=== PATIENT | male | born 1970 | race Caucasian/White ===

== ENCOUNTER 2018-02-02 00:03 | Emergency (ER) | payer BC ==
--- NOTE | 2018-02-02 00:17 | Emergency Department Record ---
History of Present Illness - General Chief Complaint: Abdominal Pain Stated Complaint: ABDOMINAL PAIN Time Seen by Provider: 02/02/18 00:12 Source: Patient Mode of Arrival: Ambulatory Limitations: No limitations - History of Present Illness Initial Comments: 48 yo male presents to ED for evaluation of epigastric abdominal pain symptoms and nausea that began this evening. Patient denies vomiting, fevers, chills, or recent illness. Patient denies chest pain or difficulty in breathing. Patient denies change in stools. Patient denies previous abdominal surgery other than surgical correction for pyloric stenosis as an . MD Complaint: Abdominal pain Onset/Timin -: Hour(s) Location: Epigastric Radiation: Epigastric Migration to: No migration Severity: Moderate Quality: Cramping Consistency: Constant Improves With: Nothing Worsens With: Nothing Associated Symptoms: Denies other symptoms - Related Data Previous Rx's Medication Instructions Recorded Omeprazole 40 mg PO DAILY #30 cap 02/02/18 Allergies Allergy/AdvReac Type Severity Reaction Status Date / Time No Known Allergies Allergy Unverified 01/16/18 15:54 Review of Systems Constitutional: Denies: Chills, Fever, Malaise, Night sweats Eyes: Denies: Eye discharge, Eye pain ENT: Denies: Congestion, Ear pain, Epistaxis Respiratory: Denies: Cough, Dyspnea Cardiovascular: Denies: Chest pain, Dyspnea on exertion Endocrine: Denies: Fatigue, Heat or cold intolerance Gastrointestinal: Reports: Abdominal pain, Nausea. Denies: Vomiting Genitourinary: Denies: Incontinence, Retention Musculoskeletal: Denies: Arthralgia, Back pain Skin: Denies: Bruising, Change in color, Change in hair/nails Neurological: Denies: Abnormal gait, Confusion, Headache, Seizure Psychiatric: Denies: Anxiety Hematological/Lymphatic: Denies: Anemia, Blood Clots Physical Exam - General General Appearance: Alert, Oriented x3, Cooperative, Mild distress Limitations: No limitations - Head Head exam: Atraumatic, Normocephalic, Normal inspection Head exam detail: negative: Abrasion, Contusion, Rodrigues's sign, General tenderness, Hematoma, Laceration - Eye Eye exam: Normal appearance. negative: Conjunctival injection, Periorbital swelling, Periorbital tenderness, Scleral icterus - ENT Ear exam: negative: Auricular hematoma, Auricular trauma Nasal Exam: negative: Active bleeding, Discharge, Dried blood, Foreign body Mouth exam: negative: Drooling, Laceration, Tongue elevation - Neck Neck exam: Normal inspection. negative: Meningismus, Tenderness - Respiratory Respiratory exam: Normal lung sounds bilaterally. negative: Rales, Respiratory distress, Rhonchi, Stridor - Cardiovascular Cardiovascular Exam: Regular rate, Normal rhythm, Normal heart sounds - GI/Abdominal GI/Abdominal exam: Soft, Tenderness (Mild epigastric TTP, no rebound or guarding present on examination.). negative: Rebound, Rigid - Rectal Rectal exam: Deferred - exam: Deferred - Extremities Extremities exam: Normal inspection. negative: Pedal edema, Tenderness - Back Back exam: Denies: CVA tenderness (R), CVA tenderness (L) - Neurological Neurological exam: Alert, Normal gait, Oriented X3 - Psychiatric Psychiatric exam: Normal affect, Normal mood - Skin Skin exam: Normal color. negative: Abrasion Type of lesion: negative: abrasion Course Vital Signs 02/02/18 00:08 Temperature 97.7 F Pulse Rate [ 84 Pulse Ox Probe] Respiratory 20 Rate Blood Pressure 168/104 [Left Arm] Pulse Ox 100 - Reevaluation(s) Reevaluation #1: 02/02/18 00:46 Laboratory studies were reviewed and are grossly unremarkable for an acute process. Reevaluation #2: 02/02/18 01:13 CT Abdomen and Pelvis: Small hiatal hernia Gallbladder appears distended, no adjacent fluid or stones are present. Punctate non-obstructing left nephrolithiasis Patient was updated on all results, symptoms appear c/w possible gastritis vs. PUD. Will treat by increasing Omeprazole from 20 to 40 mg daily with instructions to follow-up with his PCP in 3-5 days as directed. Medical Decision Making - Lab Data Result diagrams: 02/02/18 00:05 02/02/18 00:05 Disposition Disposition: Discharge Clinical Impression: Epigastric abdominal pain Disposition: Home, Self-Care Condition: (2) Stable Instructions: Epigastric Pain (ED) Additional Instructions: Return to ED if your symptoms worsen or if you have any concerns. Omeprazole 40 mg daily as directed. Follow-up with your family doctor in 3-5 days as directed. Prescriptions: Omeprazole 40 mg PO DAILY #30 cap.dr Forms: Patient Portal Access Time of Disposition: :17 Quality - Quality Measures Quality Measures: N/A - Blood Pressure Screening Does Patient Have Any of the Following: No Blood Pressure Classification: Pre-Hypertensive BP Reading Systolic Measurement: 133 Diastolic Measurement: 84 Screening for High Blood Pressure: < Pre-Hypertensive BP, F/U Documented > [ G8950] Pre-Hypertensive Follow-up Interventions: Referral to alternative/primary care provider.
[2018-02-02] MEDS: KETOROLAC 30 MG/ML VIAL IVP ONE (00:21)
[2018-02-02] MEDS: 0.9 % SODIUM CHLORIDE 1000ML 1,000 ML IV SCH (00:21)
[2018-02-02] MEDS: ONDANSETRON HCL IV 4 MG/2 ML VIAL IVP ONE (00:21)
[2018-02-02 00:22] LABS: BASO % 0.9 % (0-6); EOS % 3.3 % (0-6); GRAN % 47.2 % (47-80); HEMATOCRIT 41.7 % (42.0-52.0); HEMOGLOBIN 14.1 gm/dl (14.0-18.0); LYMPH % 39.8 % (16-45); MEAN CELL VOLUME 91.4 fl (81-97); MEAN CORPUSCULAR HEMOGLOBIN 30.9 pg (27-33); MEAN CORPUSCULAR HGB CONC 33.8 g/dl (32-36); MEAN PLATELET VOLUME 10.4 fl (7.4-10.4); MONO % 8.8 % (0-9); PLATELET COUNT 342 K/uL (130-400); RED BLOOD COUNT 4.56 M/uL (4.40-5.70); RED CELL DISTRIBUTION WIDTH 12.7 % (11.5-14.5)
[2018-02-02 00:39] LABS: BLOOD UREA NITROGEN 15 mg/dL (6-20); EST GLOMERULAR FILTRATION RATE > 60 mL/min
[2018-02-02 00:40] LABS: TOTAL PROTEIN 6.9 g/dL (6.6-8.7)
[2018-02-02 00:42] LABS: GLUCOSE,RANDOM 115 mg/dL (74-109)
[2018-02-02 00:45] LABS: ALB/GLOB RATIO 1.7 (1.1-1.8); ALBUMIN 4.3 g/dL (4.0-5.0); ALKALINE PHOSPHATASE 73 U/L (40-129); ALT/SGPT 47 U/L (<41); AST/SGOT 27 U/L (10.0-50.0); LIPASE 44 U/L (13-60)
[2018-02-02] MEDS: MAGNESIUM HYDROXIDE/AL HYDROX 30 ML, LIDOCAINE VISC 2% 15ML 15 ML PO ONE ×2 (00:53)
--- NOTE | 2018-02-03 08:26 | CT SCAN REPORT ---
EXAM: CT OF THE ABDOMEN AND PELVIS WITH CONTRAST HISTORY: ABDOMINAL PAIN. TECHNIQUE: Sequential axial images were obtained from the diaphragms through the ischiorectal fossa after intravenous administration of 100 ml of Omnipaque 300 contrast material. FINDINGS: The visualized lung bases appear normal. 10 mm low density lesion in the left lobe of the liver. Mild gallbladder distention. No gallstones or ductal dilatation. The pancreas and spleen appear normal. There is a small sliding type hiatal hernia. The adrenal glands and kidneys appear normal. No obstructive uropathy. The small bowel appears normal. The colon appears normal. The appendix is visualized and appears normal. The urinary bladder appears normal. The prostate gland appears normal. The osseous structures are grossly unremarkable. IMPRESSION: 1. NO ACUTE ABDOMINAL OR PELVIC DISEASE PROCESS. 2. MILD GALLBLADDER DISTENTION. NO GALLSTONES OR DUCTAL DILATATION. JOB NUMBER: [id number] [facility]TD[facility]
== END 2018-02-02 01:46 | disposition home or self-care (01) ==
LOC: ER 00:03
DX: R10.13 Epigastric pain (principal); R11.0 Nausea
CPT/HCPCS: 99282 ×2; 99284 ×2; 96374; 96375; 83690; 85025; 80076; 80053; 76700; 74177; Q9967; J1885; J2405; J7030

== ENCOUNTER 2018-02-02 15:05 | Emergency (ER) | payer BC ==
--- NOTE | 2018-02-02 15:46 | Emergency Department Record ---
History of Present Illness - General Chief Complaint: Recheck - Other Stated Complaint: RECHECK, US Time Seen by Provider: 02/02/18 15:34 Source: Patient Mode of arrival: Ambulatory Limitations: No limitations - History of Present Illness Initial Comments: The patient is here due to persistent RUQ AP. The onset of the pain was about 24 hours ago and then it was a diffuse upper AP not associated with nausea or vomiting. The patient was seen in the ER last night and had a neg CT and neg lab work. Now the pain is localizing more to the RUQ so he is here for an abdominal US. The patient denies any fever, chills, vomiting, CP, SOB, or diarrhea. MD Complaint: Other Onset/Timin -: Days(s) Initial Visit For: Other Returns Today for: Other Symptoms Since Prior Visit: No new symptoms Associated Symptoms: Abdominal pain - Related Data Previous Rx's Medication Instructions Recorded Omeprazole 40 mg PO DAILY #30 02/02/18 Allergies Allergy/AdvReac Type Severity Reaction Status Date / Time No Known Allergies Allergy Unverified 01/16/18 15:54 Travel Screening - Travel/Exposure Within Last 30 Days Have you traveled within the last 30 days?: No Review of Systems Constitutional: Denies: Chills, Fever Eyes: Denies: Eye discharge ENT: Denies: Congestion Respiratory: Denies: Cough, Dyspnea Past Medical History - SOCIAL HISTORY Smoking Status: Never smoker Alcohol Use: None Drug Use: None - RESPIRATORY Hx Respiratory Disorders: No - CARDIOVASCULAR Hx Cardio Disorders: No - NEURO Hx Neuro Disorders: No - GI Hx GI Disorders: Yes Hx Reflux: Yes - Hx Genitourinary Disorders: No - ENDOCRINE Hx Endocrine Disorders: No - MUSCULOSKELETAL Hx Musculoskeletal Disorders: No - PSYCH Hx Psych Problems: No - HEMATOLOGY/ONCOLOGY Hx Hematology/Oncology Disorders: No Family Medical History Any Significant Family History?: No Physical Exam - General General Appearance: Alert, Oriented x3, Cooperative, No acute distress - Head Head exam: Atraumatic, Normocephalic, Normal inspection - Eye Eye exam: Normal appearance, PERRL, EOMI - ENT Throat exam: Normal inspection. negative: Tonsillar erythema, Tonsillar exudate - Neck Neck exam: Normal inspection, Full ROM. negative: Tenderness - Respiratory Respiratory exam: Normal lung sounds bilaterally. negative: Respiratory distress - Cardiovascular Cardiovascular Exam: Regular rate, Normal rhythm, Normal heart sounds - GI/Abdominal GI/Abdominal exam: Soft, Normal bowel sounds, Tenderness (There is significant RUQ tenderness.). negative: Distended, Guarding, Rebound, Rigid - Extremities Extremities exam: Normal inspection, Full ROM, Normal capillary refill. negative: Tenderness - Back Back exam: Reports: Normal inspection - Neurological Neurological exam: Alert. negative: Motor sensory deficit Course Vital Signs 02/02/18 15:21 Temperature 98.9 F Pulse Rate 109 H Respiratory 16 Rate Blood Pressure 138/87 Pulse Ox 98 - Reevaluation(s) Reevaluation #1: The patient is doing a lot better a this time. His pain has basically resolved and he is resting comfortably. I did discuss the neg lab work and US with him and the need for F/U. 02/02/18 17:41 Medical Decision Making - Data Complexity MDM Data: Labs Ordered and/or Reviewed, X-Ray Ordered and/or Reviewed - Lab Data Result diagrams: 02/02/18 16:55 - Radiology Data Radiology results: Report reviewed (US: Neg for GB dz.) Disposition Disposition: Discharge Clinical Impression: Epigastric abdominal pain Disposition: Home, Self-Care Condition: (2) Stable Instructions: Abdominal Pain (ED) Additional Instructions: Please continue your Omeprazole and use Tylenol for pain. Please take an OTC laxative and see your family doctor if not better in 3 days. Return to the ER for any worsening symptoms. Forms: Patient Portal Access Time of Disposition: 17:41 Quality - Quality Measures Quality Measures: N/A - Blood Pressure Screening View Details: Yes Does Patient Have Any of the Following: No Blood Pressure Classification: Pre-Hypertensive BP Reading Systolic Measurement: 138 Diastolic Measurement: 87 Screening for High Blood Pressure: < Pre-Hypertensive BP, F/U Documented > [ G8950] Pre-Hypertensive Follow-up Interventions: Referral to alternative/primary care provider.
[2018-02-02 17:06] LABS: BASO % 0.2 % (0-6); EOS % 1.2 % (0-6); GRAN % 75.7 % (47-80); HEMATOCRIT 42.6 % (42.0-52.0); HEMOGLOBIN 14.2 gm/dl (14.0-18.0); LYMPH % 13.9 % (16-45); MEAN CELL VOLUME 91.6 fl (81-97); MEAN CORPUSCULAR HEMOGLOBIN 30.5 pg (27-33); MEAN CORPUSCULAR HGB CONC 33.3 g/dl (32-36); MEAN PLATELET VOLUME 10.4 fl (7.4-10.4); PLATELET COUNT 322 K/uL (130-400); RED BLOOD COUNT 4.65 M/uL (4.40-5.70); RED CELL DISTRIBUTION WIDTH 12.6 % (11.5-14.5); WHITE BLOOD COUNT W/O DIFF 12.3 K/uL (4.2-12.2)
[2018-02-02 17:36] LABS: ALT/SGPT 41 U/L (<41)
[2018-02-02 17:37] LABS: ALBUMIN 4.2 g/dL (4.0-5.0); ALKALINE PHOSPHATASE 67 U/L (40-129); AST/SGOT 23 U/L (10.0-50.0); LIPASE 29 U/L (13-60)
[2018-02-02 17:38] LABS: BILIRUBIN,DIRECT < 0.2 mg/dL (0-0.3)
--- NOTE | 2018-02-03 13:35 | ULTRASOUND REPORT ---
EXAM: EMERGENCY COMPLETE ABDOMEN ULTRASOUND HISTORY: RIGHT UPPER QUADRANT PAIN. TECHNIQUE: Complete real-time ultrasound examination of the abdomen was obtained. Comparison: No prior abdomen ultrasound. Comparison is made with the abdomen CT from earlier today on 02/02/18. Report of the prior CT is not as yet available within PACS, however. FINDINGS: The pancreas is largely obscured by overlying bowel gas and not adequately visualized sonographically. Similarly, portions of the abdominal aorta were also obscured by overlying bowel gas although the visualized abdominal aorta, which was primarily the distal aspect, does appear of normal caliber with no aneurysm evident. The IVC was negative as seen. The liver has a somewhat coarsened echogenicity which may represent some diffuse fatty infiltration of the liver. Relative sparing of this coarsened echogenicity near the gallbladder probably represents some variable fatty infiltration. There is no obvious hepatic mass near the gallbladder fossa on the recent CT. No intrahepatic biliary dilatation is seen. The right kidney measures about 11.7 cm in length. No hydronephrosis evident. Slightly hypoechoic area centrally in the right kidney is probably just a prominent pyramid when correlated with the abdomen CT from this morning as well with no actual renal mass identified in this location on the CT. No gallstones identified within the gallbladder. No pericholecystic fluid collection identified. Personal Support Worker indicates a negative sonographic Root's sign as well. The common duct was seen and was of normal caliber. The spleen appears negative with no splenic mass evident. The left kidney measures about 13.2 cm in length with no hydronephrosis evident. IMPRESSION: 1. NO GALLSTONES OR BILIARY DILATATION SEEN. 2. NO HYDRONEPHROSIS EVIDENT. 3. COARSENED ECHOGENICITY OF THE LIVER SUGGESTING SOME DIFFUSE FATTY INFILTRATION OF THE LIVER. SLIGHT CHANGE IN HEPATIC PARENCHYMAL DENSITY NEAR THE GALLBLADDER IS PROBABLY JUST SOME AREA OF FATTY SPARING, NOT UNCOMMON IN THIS REGION. 4. THE PANCREAS WELL PORTIONS OF THE AORTA ARE OBSCURED BY OVERLYING BOWEL CONTENT. JOB NUMBER: [id number] [facility]
== END 2018-02-02 17:52 | disposition home or self-care (01) ==
LOC: ER 15:05
DX: R10.13 Epigastric pain (principal)
CPT/HCPCS: 76700; 80076; 83690; 85025

== ENCOUNTER 2018-04-13 10:14 | Day surgery (SDC) | payer BC ==
[2018-04-13] MEDS ORDERED: LIDOCAINE 2% MDV (20MG/ML) 20ML VIAL IV ONE (10:15)
[2018-04-13] MEDS ORDERED: FENTANYL PF 100MCG/2ML VIAL IV ONE (10:15)
[2018-04-13] MEDS ORDERED: PROPOFOL 10 MG/ML VIAL IV ONE (10:15)
--- NOTE | 2018-04-14 09:50 | Operative Note ---
DATE OF SURGERY: 04/13/2018 OPERATION: ESOPHAGOGASTRODUODENOSCOPY with multiple biopsies. INDICATION: Severe band-like epigastric pain extending around to the back. He did have a low ejection fraction of his gallbladder noted on HIDA scanning. He presents today, however, at the request of his physician for upper endoscopy to rule out additional pathology. He does suffer with chronic pyrosis but it has been fairly well controlled with acid blockade treatment. ANESTHESIA: Intravenous sedation was administered by the department of anesthesiology and included Diprivan titrated to effect. PROCEDURE: Following informed consent from this alert individual, including a discussion of the risks and benefits of the procedure and an opportunity for the patient to ask questions, the patient was in the left lateral decubitus position. The Olympus [id number] video endoscope was inserted into the esophagus without resistance. The proximal esophagus had a normal appearance with normal folds and distensibility. The mid and distal esophagus likewise was free from changes. The squamocolumnar junction approximated the diaphragmatic hiatus. It was smooth and well defined. The stomach was entered. The gastric fundus and pars media had a normal appearance with normal folds and distensibility. The antrum was evaluated circumferentially and demonstrated some mild erythema and a 1 cm umbilicated lesion along the greater curvature of the antrum suggestive of a pancreatic rest. The pylorus was patent. The duodenal bulb, sweep and descending duodenum were examined in a serial fashion and found to be normal. The endoscope was then drawn back into the body of the stomach where retroflexion accomplished following air insufflation failed to demonstrate any additional changes. The instrument was then straightened. Biopsy was first taken from the antral mucosa to assess for Helicobacter pylori and histology. Second set of biopsies was taken from the presume pancreatic rest. After biopsy, endoscope was then withdrawn back through a normal proximal stomach and esophagus and removed from the patient. He tolerated the procedure well and was returned to the recovery area in stable condition. IMPRESSION: 1. 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 2. Minimal antral gastritis, biopsies taken. 3. Normal esophagus and duodenum. RECOMMENDATION: The patient's HIDA scan was abnormal with a low ejection fraction of only 14%. The patient described band-like pain and pressure around his upper abdomen most compatible with biliary colic. Pending biopsy results, I would recommend he follow up with his primary care physician to discuss possible surgical referral for a possible cholecystectomy. Further recommendations may be forthcoming pending biopsy. As always, thank you for allowing me to participate in the care of your patient. CC: SOFI JONES MD, FACP [facility]
== END 2018-04-13 12:22 | disposition home or self-care (01) ==
LOC: HOP 10:14
PROVIDERS: ATTEND Internal Medicine Gastroenterology
DX: R10.13 Epigastric pain (principal); R12 Heartburn; K29.70 Gastritis, unspecified, without bleeding; E78.00 Pure hypercholesterolemia, unspecified
CPT/HCPCS: 43239; 00731; J3010

== ENCOUNTER 2018-08-13 04:31 | Emergency (ER) | payer BC ==
[2018-08-13] MEDS ORDERED: DICYCLOMINE HCL 10 MG/ML AMPUL IM ONE (04:57)
[2018-08-13] MEDS ORDERED: KETOROLAC 30 MG/ML VIAL IVP ONE (04:57)
[2018-08-13] MEDS ORDERED: ONDANSETRON HCL IV 4 MG/2 ML VIAL IV ONE (04:57)
--- NOTE | 2018-08-13 05:01 | Emergency Department Record ---
History of Present Illness - General Chief Complaint: Abdominal Pain Stated Complaint: GALL BLADDER ATTACK Time Seen by Provider: 08/13/18 04:47 Source: Patient Mode of Arrival: Ambulatory Limitations: No limitations - History of Present Illness Initial Comments: pt states he is having a gall bladder attack. he had milk and protein bars for dinner. he had a similar attack last january and saw dr espinoza and dr porras. his hida scan was abnormal w 14% ef. he had had n/v x1. no chg in stool MD Complaint: Abdominal pain Onset/Timin -: Hour(s) Location: RUQ Radiation: RUQ Severity: Moderate Severity scale (1-10): 7 Quality: Sharp, Stabbing Consistency: Constant Improves With: Nothing Worsens With: Nothing Associated Symptoms: Nausea, Vomiting - Related Data Home Medications Medication Instructions Recorded Confirmed Last Taken Aspirin [Aspir-Low] 81 mg PO DAILY 08/13/18 08/13/18 08/13/18 Fexofenadine/Pseudoephedrine 1 tab PO DAILY 08/13/18 08/13/18 08/13/18 [Komal-D 24 Hour Tablet] [place]-3/Dha/Epa/Fish Oil [Fish Oil 1,000 mg PO DAILY 08/13/18 08/13/18 08/13/18 1,000 mg Softgel] Psyllium Husk [Fiber] 0.4 gm PO DAILY 08/13/18 08/13/18 08/13/18 Previous Rx's Medication Instructions Recorded Omeprazole 40 mg PO DAILY #30 rodolfo. 02/02/18 Dicyclomine HCl [Bentyl] 10 mg PO Q8H #10 cap 08/13/18 Hydrocodone/Acetaminophen [[place] 1 each PO Q6HR #7 tablet 08/13/18 5-325 Tablet] Allergies Allergy/AdvReac Type Severity Reaction Status Date / Time No Known Drug Allergies Allergy Verified 08/13/18 04:43 Travel Screening - Travel/Exposure Within Last 30 Days Have you traveled within the last 30 days?: Yes Location Detail:: [place] - Travel/Exposure Within Last Year Have you traveled outside the [place] in the last year?: No - Additonal Travel Details Have you been exposed to anyone with a communicable illness?: No - Travel Symptoms Symptom Screening: None Review of Systems Reviewed: No additional complaints except as noted below Constitutional: Reports: As per HPI. Denies: Chills, Fever, Malaise, Night sweats, Weakness, Weight change Eyes: Reports: As per HPI. Denies: Eye discharge, Eye pain, Photophobia, Vision change ENT: Reports: As per HPI. Denies: Congestion, Dental pain, Ear pain, Epistaxis, Hearing loss, Throat pain Respiratory: Reports: As per HPI. Denies: Cough, Dyspnea, Hemoptysis, Stridor, Wheezes Cardiovascular: Reports: As per HPI. Denies: Arrhythmia, Chest pain, Dyspnea on exertion, Edema, Murmurs, Orthopnea, Palpitations, Paroxysmal nocturnal dyspnea, Rheumatic Fever, Syncope Endocrine: Reports: As per HPI. Denies: Fatigue, Heat or cold intolerance, Polydipsia, Polyuria Gastrointestinal: Reports: As per HPI, Abdominal pain, Nausea, Vomiting. Denies: Constipation, Diarrhea, Hematemesis, Hematochezia, Melena Genitourinary: Reports: As per HPI. Denies: Dysuria, Frequency, Hematuria, Incontinence, Retention, Testicular pain, Testicular mass, Urgency Musculoskeletal: Reports: As per HPI. Denies: Arthralgia, Back pain, Gout, Joint swelling, Myalgia, Neck pain Skin: Reports: As per HPI. Denies: Bruising, Change in color, Change in hair/nails, Lesions, Pruritus, Rash Neurological: Reports: As per HPI. Denies: Abnormal gait, Confusion, Headache, Numbness, Paresthesias, Seizure, Tingling, Tremors, Vertigo, Weakness Psychiatric: Reports: As per HPI. Denies: Anxiety, Auditory hallucinations, Depression, Homicidal thoughts, Suicidal thoughts, Visual hallucinations Hematological/Lymphatic: Reports: As per HPI. Denies: Anemia, Blood Clots, Easy bleeding, Easy bruising, Swollen glands Past Medical History - SOCIAL HISTORY Smoking Status: Never smoker Alcohol Use: Occasional Drug Use: None - RESPIRATORY Hx Respiratory Disorders: No - CARDIOVASCULAR Hx Cardio Disorders: No - NEURO Hx Neuro Disorders: No - GI Hx GI Disorders: Yes Hx Reflux: Yes - Hx Genitourinary Disorders: No - ENDOCRINE Hx Endocrine Disorders: No - MUSCULOSKELETAL Hx Musculoskeletal Disorders: No - PSYCH Hx Psych Problems: Yes Hx Anxiety: Yes - HEMATOLOGY/ONCOLOGY Hx Hematology/Oncology Disorders: No Family Medical History Any Significant Family History?: No Physical Exam - General General Appearance: Alert, Oriented x3, Cooperative, Mild distress - Head Head exam: Normal inspection - Eye Eye exam: Normal appearance, PERRL, EOMI Pupils: Normal accommodation - ENT ENT exam: Normal exam, Mucous membranes moist, Normal external ear exam, Normal orophraynx Ear exam: Normal external inspection. negative: External canal tenderness Nasal Exam: Normal inspection. negative: Discharge, Sinus tenderness Mouth exam: Normal external inspection, Tongue normal Teeth exam: Normal inspection. negative: Dental caries Throat exam: Normal inspection. negative: Tonsillar erythema, Tonsillar exudate - Neck Neck exam: Normal inspection, Full ROM. negative: Tenderness - Respiratory Respiratory exam: Normal lung sounds bilaterally. negative: Respiratory distress - Cardiovascular Cardiovascular Exam: Regular rate, Normal rhythm, Normal heart sounds - GI/Abdominal GI/Abdominal exam: Soft, Normal bowel sounds, Tenderness (ruq) - Rectal Rectal exam: Deferred - exam: Deferred - Extremities Extremities exam: Normal inspection, Full ROM, Normal capillary refill. negative: Tenderness - Back Back exam: Reports: Normal inspection, Full ROM. Denies: Muscle spasm, Rash noted, Tenderness - Neurological Neurological exam: Alert, CN II-XII intact, Normal gait, Oriented X3 - Psychiatric Psychiatric exam: Normal affect, Normal mood - Skin Skin exam: Dry, Intact, Normal color, Warm Course Vital Signs 08/13/18 04:36 Temperature 98.7 F Pulse Rate 82 Respiratory 20 Rate Blood Pressure 154/101 Pulse Ox 98 - Reevaluation(s) Reevaluation #1: 08/13/18 05:45 pt feels better Medical Decision Making - Lab Data Result diagrams: 08/13/18 04:45 08/13/18 04:45 Disposition Disposition: Discharge Clinical Impression: Biliary colic Disposition: Home, Self-Care Condition: (1) Good Instructions: Biliary Colic (ED) Additional Instructions: follow up with dr espinoza. return sooner if worse. low fat diet Prescriptions: Hydrocodone/Acetaminophen [[place] 5-325 Tablet] 1 each PO Q6HR #7 tablet Dicyclomine HCl [Bentyl] 10 mg PO Q8H #10 cap Referrals: Cas Espinoza [DOCTOR OF OSTEOPATH] - [facility] [Provider Group] Forms: Patient Portal Access, Return to Work/School Quality - Quality Measures Quality Measures: N/A - Blood Pressure Screening Does Patient Have Any of the Following: No Blood Pressure Classification: Hypertensive Reading Systolic Measurement: 154 Diastolic Measurement: 101 Screening for High Blood Pressure: < First Hypertensive BP, F/U Documented > [G8950] First Hypertensive Follow-up Interventions: Follow-up with rescreen GT 1 day and LT 4 weeks.
[2018-08-13] MEDS ORDERED: 0.9 % SODIUM CHLORIDE 1,000 ML BAG IV ONE (05:02)
[2018-08-13 05:06] LABS: ABSOLUTE NEUTROPHIL COUNT 5.43; BASO % 0.6 % (0-6); EOS % 2.5 % (0-6); GRAN % 60.1 % (47-80); HEMATOCRIT 42.1 % (42.0-52.0); HEMOGLOBIN 14.3 gm/dl (14.0-18.0); LYMPH % 27.5 % (16-45); MEAN CELL VOLUME 90.9 fl (81-97); MEAN CORPUSCULAR HEMOGLOBIN 30.9 pg (27-33); MEAN PLATELET VOLUME 10.5 fl (7.4-10.4); MONO % 9.3 % (0-9); PLATELET COUNT 321 K/uL (130-400); RED BLOOD COUNT 4.63 M/uL (4.40-5.70); RED CELL DISTRIBUTION WIDTH 12.7 % (11.5-14.5)
[2018-08-13 05:19] LABS: BLOOD UREA NITROGEN 19 mg/dL (6-20); CREATININE 0.9 mg/dL (0.7-1.2); EST GLOMERULAR FILTRATION RATE > 60 mL/min
[2018-08-13 05:20] LABS: LIPASE 26 U/L (13-60)
[2018-08-13 05:22] LABS: GLUCOSE,RANDOM 123 mg/dL (74-109)
[2018-08-13 05:24] LABS: ALT/SGPT 33 U/L (<41)
[2018-08-13 05:25] LABS: ALBUMIN 4.5 g/dL (4.0-5.0); ALKALINE PHOSPHATASE 64 U/L (40-129); AST/SGOT 23 U/L (10.0-50.0); BILIRUBIN,DIRECT < 0.2 mg/dL (0-0.3)
== END 2018-08-13 05:52 | disposition home or self-care (01) ==
LOC: ER 04:31
DX: K80.50 Calculus of bile duct without cholangitis or cholecystitis without obstruction (principal); R11.2 Nausea with vomiting, unspecified
CPT/HCPCS: 99284 ×2; 96374; 96372; 96375; 83690; 85025; 80076; 80048; J1885; J2405; J7030

== ENCOUNTER 2018-08-17 23:56 | Observation (INO) | payer BC ==
[2018-08-18] MEDS ORDERED: SODIUM CHLORIDE 0.9% 500 ML IV ONE (00:13)
[2018-08-18] MEDS ORDERED: ACETAMINOPHEN 1,000 MG/100 ML BTL IVPB ONE (00:13)
[2018-08-18] MEDS ORDERED: ONDANSETRON HCL IV 4 MG/2 ML VIAL IV ONE (00:13)
--- NOTE | 2018-08-18 00:17 | Emergency Department Record ---
History of Present Illness - General Chief Complaint: Abdominal Pain Stated Complaint: GALLBLADDER PAIN OUT OF PAIN MEDS Time Seen by Provider: 08/18/18 00:03 Source: Patient Mode of Arrival: Ambulatory Limitations: No limitations - History of Present Illness Initial Comments: The patient is here due to recurrent abdominal pain today. He has had problems with upper AP starting in Jan of last year. He had a full workup including a CT, US, EGD and Hida scan. His workup demonstrated a poorly functioning GB at the time of the scan which was in Feb of this year. The pain then did subside until a week ago. He was here in the ER on 08/13/18 and did have normal lab values and was discharged on Arcadia. He now is out of the Arcadia. The patient did see Dr. Nelly pink [facility] and is scheduled for surgery in a week. Due to being out of pain medicines and the fact he pain returned he did return to the ER. The patient did call Dr. Silver and was told to take Motrin but since that did not work he came here. Complaint: Abdominal pain Onset/Timin -: Days(s) Severity scale (1-10): 9 Quality: Aching Consistency: Constant Improves With: Nothing Worsens With: Nothing Associated Symptoms: Nausea - Related Data Previous Rx's Medication Instructions Recorded Omeprazole 40 mg PO DAILY #30 rodolfo. 02/02/18 Dicyclomine HCl [Bentyl] 10 mg PO Q8H #10 cap 08/13/18 Hydrocodone/Acetaminophen [Arcadia 1 each PO Q6HR #7 tablet 08/13/18 5-325 Tablet] Allergies Allergy/AdvReac Type Severity Reaction Status Date / Time No Known Drug Allergies Allergy Verified 08/13/18 04:43 Travel Screening - Travel/Exposure Within Last 30 Days Have you traveled within the last 30 days?: No Review of Systems Constitutional: Denies: Chills, Fever Eyes: Denies: Eye discharge ENT: Denies: Congestion Respiratory: Denies: Cough, Dyspnea Cardiovascular: Denies: Arrhythmia, Chest pain Endocrine: Denies: Fatigue Gastrointestinal: Reports: Abdominal pain, Nausea. Denies: Diarrhea, Vomiting Genitourinary: Denies: Hematuria Musculoskeletal: Denies: Arthralgia Skin: Denies: Bruising Past Medical History - SOCIAL HISTORY Smoking Status: Never smoker Alcohol Use: None Drug Use: None - RESPIRATORY Hx Respiratory Disorders: No - CARDIOVASCULAR Hx Cardio Disorders: No - NEURO Hx Neuro Disorders: No - GI Hx GI Disorders: Yes Hx Reflux: Yes - Hx Genitourinary Disorders: No - ENDOCRINE Hx Endocrine Disorders: No - MUSCULOSKELETAL Hx Musculoskeletal Disorders: No - PSYCH Hx Psych Problems: Yes Hx Anxiety: Yes - HEMATOLOGY/ONCOLOGY Hx Hematology/Oncology Disorders: No Family Medical History Any Significant Family History?: No Physical Exam - General General Appearance: Alert, Oriented x3, Cooperative, No acute distress - Head Head exam: Atraumatic, Normocephalic, Normal inspection - Eye Eye exam: Normal appearance - Neck Neck exam: Normal inspection, Full ROM. negative: Tenderness - Respiratory Respiratory exam: Normal lung sounds bilaterally. negative: Respiratory distress - Cardiovascular Cardiovascular Exam: Regular rate, Normal rhythm, Normal heart sounds - GI/Abdominal GI/Abdominal exam: Soft, Normal bowel sounds, Tenderness (There is mild upper abdominal tenderness.). negative: Distended, Guarding, Rigid - Extremities Extremities exam: Normal inspection, Full ROM, Normal capillary refill. neg ative: Tenderness - Back Back exam: Reports: Normal inspection - Neurological Neurological exam: Alert, Normal gait. negative: Abnormal gait, Motor sensory deficit - Psychiatric Psychiatric exam: negative: Anxious - Skin Skin exam: negative: Rash Course Vital Signs 08/18/18 00:03 Temperature 98.0 F Pulse Rate [ 84 Left] Respiratory 16 Rate Blood Pressure 163/102 [Left] Pulse Ox 97 - Reevaluation(s) Reevaluation #1: The patient is doing better at this time but is still having pain. On exam he still does have mild RUQ tenderness. The CT does demonstrate a thickened GB with possible inflammation. Due to that fact I did contact Dr. Silver and he would like the patient admitted to the hospital under him and he will take the patient to surgery at approx. 4pm today. The patient also agrees to the plan. 08/18/18 01:50 Medical Decision Making - Data Complexity MDM Data: Labs Ordered and/or Reviewed, X-Ray Ordered and/or Reviewed - Lab Data Result diagrams: 08/18/18 00:20 08/18/18 00:20 - Radiology Data Radiology results: Report reviewed (CT: Possible inflamed GB with thickened wall, neg for stones but pos for sludge.) Disposition Disposition: Admit Clinical Impression: Cholecystitis Disposition: Still a Patient at [facility] Decision to Admit: Admit from ER Decision to Admit Date: 08/18/18 Decision to Admit Time: 01:52 Accepting Physician: Nadeem Time Discussed w/Accepting Physician: :53 Condition: (2) Stable Instructions: Abdominal Pain (ED) Forms: Patient Portal Access Time of Disposition: :53 Quality - Quality Measures Quality Measures: N/A - Blood Pressure Screening View Details: Yes Does Patient Have Any of the Following: No Blood Pressure Classification: Hypertensive Reading Systolic Measurement: 163 Diastolic Measurement: 102 Screening for High Blood Pressure: < First Hypertensive BP, F/U Documented > [G8950] First Hypertensive Follow-up Interventions: Referral to alternative/primary care provider.
[2018-08-18 00:28] LABS: ABSOLUTE NEUTROPHIL COUNT 7.49; BASO % 0.3 % (0-6); EOS % 2.6 % (0-6); GRAN % 68.7 % (47-80); HEMATOCRIT 41.8 % (42.0-52.0); HEMOGLOBIN 13.9 gm/dl (14.0-18.0); MEAN CELL VOLUME 91.7 fl (81-97); MEAN CORPUSCULAR HGB CONC 33.3 g/dl (32-36); MEAN PLATELET VOLUME 10.6 fl (7.4-10.4); MONO % 9.4 % (0-9); PLATELET COUNT 332 K/uL (130-400); RED BLOOD COUNT 4.56 M/uL (4.40-5.70); RED CELL DISTRIBUTION WIDTH 12.5 % (11.5-14.5); WHITE BLOOD COUNT W/O DIFF 10.9 K/uL (4.2-12.2)
[2018-08-18 00:29] LABS: MEAN CORPUSCULAR HEMOGLOBIN 30.4 pg (27-33)
[2018-08-18 00:38] LABS: BLOOD UREA NITROGEN 18 mg/dL (6-20)
[2018-08-18 00:39] LABS: CREATININE 0.9 mg/dL (0.7-1.2); EST GLOMERULAR FILTRATION RATE > 60 mL/min; LIPASE 26 U/L (13-60); TOTAL PROTEIN 7.5 g/dL (6.6-8.7)
[2018-08-18 00:41] LABS: GLUCOSE,RANDOM 125 mg/dL (74-109)
[2018-08-18 00:44] LABS: ALBUMIN 4.3 g/dL (4.0-5.0); ALKALINE PHOSPHATASE 107 U/L (40-129); ALT/SGPT 30 U/L (<41); AST/SGOT 23 U/L (10.0-50.0); BILIRUBIN,DIRECT < 0.2 mg/dL (0-0.3)
[2018-08-18] MEDS ORDERED: KETOROLAC 30 MG/ML VIAL IVP ONE (00:46)
[2018-08-18] MEDS ORDERED: ERTAPENEM SODIUM 1 G in 0.9 % SODIUM CHLORIDE 100ML 100 ML IVPB ONE (01:46)
[2018-08-18] MEDS ORDERED: HYDROMORPHONE HCL 2 MG/ML VIAL IVP ONE ×3 (01:49→16:55)
[2018-08-18] MEDS ORDERED: HYDROMORPHONE HCL 2 MG/ML VIAL IV PRN (02:24)
[2018-08-18] MEDS: 0.9 % SODIUM CHLORIDE 1000ML 1,000 ML IV PRN ×2 (02:41→19:01)
[2018-08-18] MEDS: ACETAMINOPHEN 1,000 MG/100 ML BTL IVPB SCH ×4 (06:15→23:56)
[2018-08-18] MEDS: ONDANSETRON HCL IV 4 MG/2 ML VIAL IVP PRN ×2 (09:37→17:46)
[2018-08-18] MEDS ORDERED: SCOPOLAMINE 1 PATCH TDSY TD ONE (09:42)
[2018-08-18] MEDS ORDERED: 0.9 % SODIUM CHLORIDE 1000ML 1,000 ML IV ONE (14:20)
[2018-08-18] MEDS ORDERED: METOCLOPRAMIDE 10 MG TABLET PO ONE (14:45)
[2018-08-18] MEDS ORDERED: MECLIZINE 25 MG TABLET PO ONE (14:45)
[2018-08-18] MEDS ORDERED: FAMOTIDINE 20MG TABLET PO ONE (14:45)
[2018-08-18] MEDS ORDERED: RINGERS SOLUTION,LACTATED 1,000 ML IV ONE ×2 (16:00)
[2018-08-18] MEDS ORDERED: BUPIVACAINE 0.25% W/EPI MPF 30ML VIAL SQ ONE (16:04)
[2018-08-18] MEDS ORDERED: HYDROCODONE/APAP 5/325MG TABLET PO PRN (17:29)
[2018-08-18] MEDS: HYDROCODONE/APAP 5/325MG TABLET PO PRN (17:45)
[2018-08-19] MEDS ORDERED: CALCIUM CARBONATE 500 MG TAB.CHEW PO PRN (00:45)
--- NOTE | 2018-08-19 05:30 | CT SCAN REPORT ---
EXAM: CT SCAN ABDOMEN/PELVIS WO CONTRAST HISTORY: RIGHT UPPER QUADRANT AND RIGHT LOWER QUADRANT ABDOMINAL PAIN WITH NAUSEA. PATIENT IS SCHEDULED FOR A CHOLECYSTECTOMY NEXT WEEK. TECHNIQUE: CT of the abdomen and pelvis without contrast. COMPARISON: February 02, 2018. FINDINGS: The lung bases are clear of any acute process. Noncontrasted liver shows no suspicious finding. Pancreas and spleen appear unremarkable. The gallbladder has some radiopaque material within its lumen. There might be a partially calcified stone within the lumen. The biliary tree is not dilated. In the retroperitoneum, the adrenal glands appear normal. There is a tiny nonobstructing calcification of the left kidney but neither kidney shows hydronephrosis or perinephric edema. There is no adenopathy. Aorta shows no aneurysm. Inferior vena cava shows adequate distention. Anterior abdominal wall musculature is intact. In the mesentery, there is no free air or fluid. There is no sign of mesenteric lymphadenopathy. The stomach shows a small hiatal hernia but there is no obstruction. Small bowel shows no distention or wall thickening. The terminal ileum appears normal. Colon shows no distention, wall thickening, or inflammation. The rectum appears normal. In the pelvis, the bladder is unremarkable. The prostate gland is unremarkable. Lumbar spine shows no suspicious vertebral body lesions. The bony pelvis shows no suspicious lytic or blastic lesion. JOB NUMBER: [id number] MTDD
[2018-08-19] MEDS: ACETAMINOPHEN 1,000 MG/100 ML BTL IVPB SCH (06:07)
[2018-08-19] MEDS: HYDROCODONE/APAP 5/325MG TABLET PO PRN ×2 (06:11→10:29)
[2018-08-19] MEDS ORDERED: PROPOFOL 10 MG/ML VIAL IV ONE (10:29)
[2018-08-19] MEDS ORDERED: GLYCOPYRROLATE 0.2 MG/ML ML IV ONE (10:29)
[2018-08-19] MEDS ORDERED: FENTANYL PF 100MCG/2ML VIAL IV ONE (10:29)
[2018-08-19] MEDS ORDERED: NEOSTIGMINE 1 MG/1 ML,10ML VIAL IV ONE (10:29)
[2018-08-19] MEDS ORDERED: ROCURONIUM BROMIDE 50MG/5ML VIAL IV ONE (10:29)
[2018-08-19] MEDS ORDERED: SEVOFLURANE 250 ML INH ONE (10:29)
[2018-08-19] MEDS ORDERED: KETOROLAC 30 MG/ML VIAL IVP ONE (10:29)
[2018-08-19] MEDS ORDERED: MIDAZOLAM HCL 2MG/2ML VIAL IV ONE (10:29)
[2018-08-19] MEDS ORDERED: ONDANSETRON HCL IV 4 MG/2 ML VIAL IVP ONE (10:29)
--- NOTE | 2018-08-21 11:08 | Operative Note ---
DATE OF SURGERY: 08/18/2018 SURGEON: Cas Silver DO PREOPERATIVE DIAGNOSES: 1. Acute cholecystitis. 2. Incarcerated umbilical hernia. POSTOPERATIVE DIAGNOSES: 1. Acute on chronic cholecystitis. 2. Incarcerated umbilical hernia. OPERATION: 1. Laparoscopic cholecystectomy. 2. Open umbilical herniorrhaphy. INDICATION: The patient is a 48-year-old male whom I saw in the clinic yesterday morning for increasing abdominal pain. I saw him about a year ago for cholecystitis; however, he elected not to have surgery. He presented back to the ER last night where workup was done. White count was normal; however, a CT scan showed findings somewhat a thickened gallbladder wall. Cholecystic fluid. His clinical exam was that of acute cholecystitis. We did discuss cholecystectomy versus medical management. He desired surgical intervention. Risks include bleeding, infection, ductal injury, possible conversion to open, postoperative bile leak. 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 He also had an incarcerated hernia on exam. He understood this fully. PROCEDURE: Thereafter, consent was signed and questions answered. He was taken to the operating room and placed in a supine position. General anesthesia was administered per the department of anesthesia. The patient's abdomen was shaved of hair and prepped and draped in the usual sterile fashion. At this time, adequate timeout was performed. He did receive preoperative DVT prophylaxis as well as IV antibiotics. The periumbilical region was anesthetized with a total of 10 mL of 0.25% Sensorcaine with epinephrine. A 4 cm curvilinear infraumbilical incision was made. This was carried down to the anterior rectus fascia. The umbilical stalk was encircled and dissected free from the underlying hernia sac. Clean circumferential fascial edges were obtained. The hernia sac was then amputated and passed off the field. Stay sutures of 0 Vicryl were placed inside the hernia. This hernia measured about 1.5 cm. Through this, a 12 mm Kaylie port was placed. Adequate pneumoperitoneum was established. The patient was then rotated into steep reverse Trendelenburg with rotation to left. The midline was blocked due to the prior adhesions from his Ramstedt. I could clearly see the right mid abdomen. Therefore, through this, a 5 mm port was placed. Adhesiolysis was done with the HUY Harmonic at the midline exposing the entire right upper quadrant. There was no bowel noted in the adhesions. It was all omentum. At this time, an additional 5 mm epigastric and a 5 mm right subcostal ports were placed. The gallbladder was densely covered with omentum. I could only see the fundus. This was lifted anteriorly. Visualization was limited due to the fact that the patient's duodenum was stuck to the medial side of the gallbladder as well as the liver. At this time, I did switch to an 10 mm angled lens. Visualization was still somewhat limited. Further cephalad retraction was applied. At this time, I did place an additional 5 mm port to hold back the duodenum on the medial aspect. Using an endo kit, I was able to wipe the duodenum off the gallbladder. There was no area of the duodenum or bowel injury. Due to the patient's obesity, I still was having difficulty finding Nemo pouch despite maximum retraction. Therefore, a 6th port was then placed where a 5 mm fan retractor was used to hold down the transverse colon here. I could easily see Nemo pouch. Using angled lens, this was thoroughly dissected free using mainly blunt dissection. I could clearly see the cystic duct. I could not see the cystic artery at this point. At this point, I did switch to a dome-down technique where the edge of the liver was grasped and held anteriorly. Using cautery, the gallbladder was taken down in antegrade fashion coning down to Nemo pouch posteriorly meeting up with my anterior dissection. Here, there were only 2 structures left attaching gallbladder to cystic duct and cystic artery. The cystic artery was taken down with the Huy harmonic. Cystic duct was triply clipped and cut. Of note, prior to commencing this, I did decompress the gallbladder with a Mary needle of about 50 mL of purulent bile. This was placed in an EndoCatch bat and brought through the hernia. Right upper quadrant was rechecked. It was irrigated with approximately 2 liters of normal saline. There were some oozing points in the liver bed which were controlled with a monopolar cautery. There was no bile leaking noted. I did apply a layer of FloSeal in the gallbladder fossa. There was no bleeding. No bile leaking. No bowel injury noted. was done above the liver. At this time, patient was leveled out. The pneumoperitoneum was released. All ports were removed. The hernia was closed with 0 Ethibond in interrupted fashion. Skin was closed with 3-0 and 4-0 Vicryl. Remaining 5 port sites were closed with 4-0 Vicryl. The patient was taken to the recovery room in stable condition. FINDINGS AT THE TIME OF SURGERY: Acute on chronic cholecystitis. Incarcerated umbilical hernia. Repaired as above. MTDD
== END 2018-08-19 10:30 | disposition home or self-care (01) ==
LOC: ER 23:56 → MEDSURG 08-18 02:14
PROVIDERS: ADMIT Internal Medicine; ATTEND Surgery
DX: K81.0 Acute cholecystitis (principal); K42.0 Umbilical hernia with obstruction, without gangrene; E78.00 Pure hypercholesterolemia, unspecified; K21.9 Gastro-esophageal reflux disease without esophagitis; E66.9 Obesity, unspecified; G47.33 Obstructive sleep apnea (adult) (pediatric)
CPT/HCPCS: 74176; 80048; 80076; 83690; 85025; 93005; 96365; 96375; 99285; J1885; J2405; J2710; J7030; J7120

== ENCOUNTER 2018-09-18 08:43 | Day surgery (SDC) | payer BC ==
[2018-09-18] MEDS ORDERED: PROPOFOL 10 MG/ML VIAL IV ONE (08:44)
[2018-09-18] MEDS ORDERED: LIDOCAINE 2% MDV (20MG/ML) 20ML VIAL IV ONE (08:44)
--- NOTE | 2018-09-29 13:40 | Operative Note ---
DATE OF SERVICE: 09/18/2018. DATE OF SURGERY: 09/18/2018. REQUESTING PHYSICIAN: Aldo Giles MD. SURGEON: Miles Basilio MD. PROCEDURE: COLONOSCOPY. INDICATION FOR PROCEDURE: This is a 48-year-old male with average risk for colorectal cancer who presented for screening colonoscopy. POSTOPERATIVE DIAGNOSES: 1. Left sided colon diverticulosis. 2. A 3 mm sigmoid colon polyp, removed by cold biopsy forceps. SEDATION: Sedation is per Anesthesia. Pulse oximetry was monitored throughout the duration of the procedure to maintain O2 saturation of 90% or greater. Supplemental oxygen was administered via nasal cannula. Cardiac and vital signs were monitored throughout the duration of the procedure and they were stable. PROCEDURE: The procedure of colonoscopy, risks and alternatives to the procedure, including the risks of bleeding and perforation, among others, were explained to the patient, who voiced understanding and agreed to have the procedure done. Physical examination was performed and the patient was found stable for sedation. The patient was placed in the left lateral position and sedation was initiated. Digital rectal exam was performed and showed small external hemorrhoids with no palpable rectal masses. A lubricated Olympus PCF1 80AL colonoscope was then inserted into the rectum and under direct visualization was advanced to the cecum without difficulty. The ileocecal valve and appendiceal orifice were identified and photographed. Colonic mucosa was carefully examined upon introduction of the colonoscope. There were scattered diverticula noted in the sigmoid and descending colon. There were no other lesions noted. The ileocecal valve was intubated and the terminal ileum was inspected for about 10 cm, and it appeared normal. The colonoscope was then withdrawn very carefully, re- examining the colonic mucosa surfaces. The preparation was good. The cecum, ascending colon, transverse colon, and descending colon mucosa revealed no other lesions. In the sigmoid colon was a 3 mm size polyp that was noted. It was removed by cold biopsy forceps. There were no other lesions noted. The colonoscope was then withdrawn into the rectum and retroflexion maneuver was performed, and Grade 1 internal hemorrhoids were noted. The colonoscope was then straightened and withdrawn, and the procedure was terminated. The patient tolerated the procedure well without immediate complications. He remained in stable vital signs and was transferred to the recovery room. PLAN AND RECOMMENDATIONS: 1. Patient is to be on a high fiber diet. 2. He is to have repeat colonoscopy for surveillance in 5 years. Thank you for allowing me to participate in the care of your patient. STUART
== END 2018-09-18 10:30 | disposition home or self-care (01) ==
LOC: HOP 08:43
PROVIDERS: ATTEND Internal Medicine Gastroenterology
DX: Z12.11 Encounter for screening for malignant neoplasm of colon (principal); D12.5 Benign neoplasm of sigmoid colon; K57.30 Diverticulosis of large intestine without perforation or abscess without bleeding; E78.00 Pure hypercholesterolemia, unspecified; K21.9 Gastro-esophageal reflux disease without esophagitis